=== PATIENT | male | born 1960 | race Caucasian/White ===

== ENCOUNTER → 2016-07-16 | Outpatient (CLI) | payer BC ==
--- NOTE | 2016-07-16 14:45 | RAD ---
Left foot radiographs History: Left fracture of metatarsal 6 months ago. Comparison: 01/30/2016. Findings: AP, lateral, and oblique views of the left foot performed weightbearing. There is an obliquely oriented fracture involving the distal aspect of the fifth metatarsal shaft with mild medial displacement of the fifth metatarsal head. There are irregular, slightly displaced fractures involving the second, third, fourth proximal metatarsal shafts which demonstrate a mild amount of callus formation, compatible with subacute fractures. The above fractures are new from previous study. Plantar calcaneal and Achilles tendon insertional enthesophytes are present. There is forefoot soft tissue swelling. Old fifth proximal phalangeal fracture is again seen. Impression: 1. Mildly displaced fifth metatarsal shaft fracture, age indeterminate. 2. Subacute fractures of the second, third, and fourth metatarsal shafts with only minimal healing.
== END | disposition home or self-care (01) ==
LOC: DXRADRC 10:28
PROVIDERS: ATTEND Podiatrist Foot & Ankle Surgery
DX: S92.352D Displaced fracture of fifth metatarsal bone, left foot, subsequent encounter for fracture with routine healing (principal); S92.322D Displaced fracture of second metatarsal bone, left foot, subsequent encounter for fracture with routine healing; S92.332D Displaced fracture of third metatarsal bone, left foot, subsequent encounter for fracture with routine healing; S92.342D Displaced fracture of fourth metatarsal bone, left foot, subsequent encounter for fracture with routine healing; R60.9 Edema, unspecified; X58.XXXD Exposure to other specified factors, subsequent encounter
CPT/HCPCS: 73630

== ENCOUNTER → 2016-07-28 | Outpatient (CLI) | payer BC ==
--- NOTE | 2016-07-28 16:22 | RAD ---
Left lower extremity arterial ultrasound with CATHY measurements, 07/28/2016: History: Left leg edema Duplex evaluation of the major arteries in the left lower extremity was performed including grayscale, color-flow and spectral Doppler analysis. The left common femoral artery demonstrates a triphasic Doppler waveform. Portions of the superficial femoral artery were difficult to delineate in this large patient, however, they appear patent with triphasic waveforms. No significant focal velocity acceleration was seen to suggest high-grade stenosis. The left popliteal Doppler waveform is triphasic. Patent posterior tibial and anterior tibial arteries are evident in the left lower leg demonstrating monophasic Doppler waveforms. The left peroneal artery was not visible, likely on a technical basis. The left dorsalis pedis artery is patent demonstrating a good amplitude monophasic Doppler waveform. Resting CATHY measurements were also obtained. The right CATHY is 1.14, while the left CATHY is 1.01. These values are in the normal range. IMPRESSION: 1. No evidence of significant femoral-popliteal stenosis on the left. 2. Minimal degradation of the distal Doppler waveforms in the left lower leg and ankle. 3. Normal bilateral resting CATHY measurements.
== END | disposition home or self-care (01) ==
LOC: US 12:33
PROVIDERS: ATTEND Physician Assistant Medical
DX: R60.0 Localized edema (principal)
CPT/HCPCS: 93922; 93926

== ENCOUNTER → 2019-04-13 | Outpatient (CLI) | payer SELFPAY ==
--- NOTE | 2019-04-14 08:07 | RAD ---
CHEST PA LATERAL History: Progressive breath Comparison: None. Findings: Frontal and lateral views of the chest were obtained. The cardiomediastinal silhouette is normal. Pulmonary vasculature is slightly congested. Interstitial thickening of the lung gilliam noted diffusely and this may relate to interstitial edema. No pleural effusion or pneumothorax is seen. There is no acute bone abnormality. IMPRESSION: Borderline pulmonary vasculature. Subtle interstitial thickening of the lung gilliam diffusely which may relate to edema. No focal infiltrate. Electronically signed by: Armani Gonzalez MD (04/14/2019 8:04 AM) [facility]
== END | disposition home or self-care (01) ==
LOC: DXRAD 14:00
PROVIDERS: ATTEND Internal Medicine
DX: J84.9 Interstitial pulmonary disease, unspecified (principal); I28.8 Other diseases of pulmonary vessels
CPT/HCPCS: 71046

== ENCOUNTER → 2021-01-10 | Outpatient (CLI) | payer MEDICARE ==
--- NOTE | 2021-01-10 16:35 | RAD ---
US BILATERAL LOWEREXTREMITY VENOUS DOPPLER History: Reason: SWELLING / Spl. Instructions: / History: Comparison: None. Technique: Multiple longitudinal and transverse high resolution real-time images of the venous system of bilateral lower extremity were obtained with color and Doppler sampling. Findings: Patent common femoral, deep femoral, superficial femoral and popliteal veins. Calf veins not well see n due to patient body habitus. No definite deep vein thrombosis. Impression: 1. Degraded evaluation. No evidence of deep vein thrombosis. Electronically signed by: Sridhar Mancini DO (01/10/2021 4:33 PM) [facility]
== END ==
LOC: US 15:36
PROVIDERS: ATTEND Internal Medicine
DX: R60.0 Localized edema (principal)
CPT/HCPCS: 93970